=== PATIENT | female | born 1970 | race Hispanic/Latino ===

== ENCOUNTER 2019-10-12 01:33 | Emergency (ER) | payer SELFPAY ==
[2019-10-12 02:25] LABS: Basophils % 0.4 % (0-1.3); Lymphocytes % 15.4 % (15.3-44.8); MPV 8.6 fL (7.6-11.3); RBC Red Blood Cell Count 4.08 M/uL (3.86-4.86)
[2019-10-12] MEDS ORDERED: NA CHLORIDE 0.9% 1,000 ML ONE ×2 (02:39→02:40)
[2019-10-12 02:41] LABS: Urine Blood 3+ (NEG); Urine Glucose NEGATIVE (NEG); Urine Protein 3+ (NEG); Urine Specific Gravity >1.030 (1.005-1.030)
[2019-10-12 02:42] LABS: BUN Blood Urea Nitrogen 12 mg/dL (7-18); Bicarbonate 18 mmol/L (21-32); Glucose Level 187 mg/dL (74-106); Sodium Level 138 mmol/L (136-145)
[2019-10-12] MEDS ORDERED: MORPHINE 4 MG/ML SYR ONE (03:28)
[2019-10-12] MEDS ORDERED: ONDANSETRON 4 MG/2 ML VIAL ONE (03:28)
[2019-10-12] MEDS ORDERED: ACETAMINOPHEN 500 MG TAB ONE (04:54)
[2019-10-12] MEDS ORDERED: PIPER/TAZO/NS 3.375gm 3.375 GM/100 ML BAG ONE (05:30)
[2019-10-12 07:14] LABS: Absolute Lymphocytes (CBC) 0.9 K/uL (0.7-4.9); Basophils % 0.2 % (0-1.3); Hematocrit 26.2 % (36.0-45.0); Lymphocytes % 4.8 % (15.3-44.8); MPV 8.8 fL (7.6-11.3); RBC Red Blood Cell Count 2.96 M/uL (3.86-4.86)
--- NOTE | 2019-10-12 07:19 | EDPHYS ---
Physician Documentation [facility] Name: Eleonora Lipscomb Age: 49 yrs Sex: Female : 1970 Arrival Date: 10/12/2019 Time: 01:37 Bed 5 Private MD: ED Physician Tanvir Herrera HPI: 10/11 02:44 This 49 yrs old Female presents to ER via Wheelchair with complaints of pkl Vaginal Bleeding. 02:44 The patient presents with vaginal bleeding that is moderate, with clots. Onset: The pkl symptoms/episode began/occurred just prior to arrival, 1 hour(s) ago. Associated signs and symptoms: Pertinent positives: cramping. 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 - Social history:: Smoking status: Patient denies any tobacco usage or history of. ROS: 02:44 Positive for vaginal bleeding. pkl 02:44 Eyes: Negative for injury, pain, redness, and discharge, ENT: Negative for injury, pain, and discharge, Neck: Negative for injury, pain, and swelling, Cardiovascular: Negative for chest pain, palpitations, and edema, Respiratory: Negative for shortness of breath, cough, wheezing, and pleuritic chest pain, Abdomen/GI: Negative for abdominal pain, nausea, vomiting, diarrhea, and constipation, Back: Negative for injury and pain. 02:44 : Positive for vaginal bleeding. 02:44 MS/extremity: Negative for acute changes. 02:44 Skin: Negative for rash. 02:44 Neuro: Negative for altered mental status. Exam: 02:44 Head/Face: Normocephalic, atraumatic. Eyes: Pupils equal round and reactive to light, pkl extra-ocular motions intact. Lids and lashes normal. Conjunctiva and sclera are non-icteric and not injected. Cornea within normal limits. Periorbital areas with no swelling, redness, or edema. ENT: Nares patent. No nasal discharge, no septal abnormalities noted. Tympanic membranes are normal and external auditory canals are clear. Oropharynx with no redness, swelling, or masses, exudates, or evidence of obstruction, uvula midline. Mucous membranes moist. Neck: Trachea midline, no thyromegaly or masses palpated, and no cervical lymphadenopathy. Supple, full range of motion without nuchal rigidity, or vertebral point tenderness. No Meningismus. Chest/axilla: Normal chest wall appearance and motion. Nontender with no deformity. No lesions are appreciated. Cardiovascular: Regular rate and rhythm with a normal S1 and S2. No gallops, murmurs, or rubs. Normal PMI, no JVD. No pulse deficits. Respiratory: Lungs have equal breath sounds bilaterally, clear to auscultation and percussion. No rales, rhonchi or wheezes noted. No increased work of breathing, no retractions or nasal flaring. Abdomen/GI: Soft, non-tender, with normal bowel sounds. No distension or tympany. No guarding or rebound. No evidence of tenderness throughout. Back: No spinal tenderness. No costovertebral tenderness. Full range of motion. 02:44 : Pelvic Exam: Speculum exam: moderate bleeding, os that is open. 02:44 Musculoskeletal/extremity: Exam is negative for acute changes. 02:44 Skin: Exam negative for rash. 02:44 Neuro: Orientation: is normal, Mentation: is normal, Cranial nerves: grossly normal, Motor: is normal. Vital Signs: 01:45 BP 164 / 105; Pulse 114; Resp 20; Temp 99(O); Pulse Ox 99% on R/A; Weight 140.61 kg lp1 (R); Height 5 ft. 7 in. (170.18 cm); Pain 0/10; 02:51 BP 177 / 75; Pulse 111; Resp 18; Pulse Ox 95% on R/A; mg2 03:24 BP 168 / 48; Pulse 105; Resp 18; Pulse Ox 95% on R/A; Pain 8/10; mg2 04:40 BP 164 / 78; Pulse 125; Resp 18; Temp 102.3(O); Pulse Ox 94% on R/A; mg2 05:42 BP 138 / 69; Pulse 115; Resp 18; Temp 101.9(O); Pulse Ox 94% on R/A; mg2 06:21 BP 120 / 57; Pulse 123; Resp 18; Pulse Ox 94% on R/A; mg2 06:53 BP 114 / 51; Pulse 123; Resp 18; Temp 100.3; Pulse Ox 96% on R/A; mg2 08:16 BP 122 / 61; Pulse 110; Resp 18; Temp 98.3(O); Pulse Ox 96% on R/A; ph 09:20 BP 108 / 58; Pulse 111; Resp 18; Temp 98.4; Pulse Ox 96% on R/A; ph 01:45 Body Mass Index 48.55 (140.61 kg, 170.18 cm) lp1 MDM: 01:40 Patient medically screened. pkl 04:49 Data reviewed: vital signs, nurses notes. pkl 07:14 Data reviewed: lab test result(s), radiologic studies, plain films, ultrasound. ED pkl course: Talked to Dr. Debbie Vo, transfer to [facility]. 10/11 01:52 Order name: Abo/rh Typing; Complete Time: 03:46 mg2 10/11 01:52 Order name: Basic Metabolic Panel; Complete Time: 03:46 mg2 10/11 01:52 Order name: CBC with Diff; Complete Time: 02:39 mg2 10/11 02:38 Order name: Beta hcg; Complete Time: 03:46 mg2 10/11 02:39 Order name: Urine Dipstick--Ancillary (enter results); Complete Time: 03:46 tt3 10/11 02:39 Order name: Urine --Ancillary (enter results); Complete Time: 03:46 tt3 06 02:42 Order name: US Transvaginal Ob pkl 10/11 04:44 Order name: Blood Culture Adult (2) mg2 10/11 04:44 Order name: Lactate; Complete Time: 06:19 mg2 10/11 04:53 Order name: COVID-19; Complete Time: 20:19 mg2 10/11 06:43 Order name: CBC with Diff; Complete Time: 20:19 pkl 10/11 06:43 Order name: Lactate; Complete Time: 20:19 pkl 10/11 08:22 Order name: Manual Differential; Complete Time: 20:19 EDMS 10/11 01:52 Order name: IV Saline Lock; Complete Time: 02:25 mg2 10/11 01:52 Order name: Labs collected and sent; Complete Time: 02:25 mg2 10/11 01:52 Order name: NPO; Complete Time: 02:25 mg2 10/11 01:52 Order name: Urine Dipstick-Ancillary (obtain specimen); Complete Time: 02:32 mg2 10/11 07:12 Order name: XRAY CXR (1 view); Complete Time: 20:19 pkl 10/11 07:24 Order name: Labs - recollect needed: cbc recollect; Complete Time: 07:53 eb Administered Medications: 02:32 Drug: NS 0.9% 1000 ml Route: IV; Rate: 1000 ml; Site: right antecubital; mg2 06:54 Follow up: Response: No adverse reaction; IV Status: Completed infusion; IV Intake: mg2 1000ml 02:32 Drug: NS 0.9% 1000 ml Route: IV; Rate: 125 ml/hr; Site: right antecubital; mg2 09:20 Follow up: Response: No adverse reaction; IV Status: Infusion continued upon transfer ph 03:35 Drug: morphine 4 mg Route: IVP; Site: right antecubital; mg2 06:54 Follow up: Response: No adverse reaction mg2 03:35 Drug: Zofran (Ondansetron) 4 mg Route: IVP; Site: right antecubital; mg2 06:54 Follow up: Response: No adverse reaction mg2 05:16 Drug: Tylenol 1000 mg Route: PO; mg2 06:54 Follow up: Response: No adverse reaction mg2 05:24 Drug: Zosyn 3.375 grams Route: IVPB; Infused Over: 60 mins; Site: left hand; mg2 06:54 Follow up: Response: No adverse reaction; IV Status: Completed infusion mg2 Disposition: 10/12/19 07:17 Transfer ordered to [facility]. Diagnosis is Vaginal bleeding. Molar . Fever. - Reason for transfer: Higher level of care. - Accepting physician is Dr. Mikael Vo. - Condition is Stable. - Problem is new. - Symptoms are unchanged. Signatures: Dispatcher [employer] EDMS Maranda Nichols, BRENNA NUGENT-Tanvir Gonzales MD MD pkMacie Farias RN RN lp1 Claire Camarena RN RN ph Sharon Kaplan Michele, RN RN mg2 Corrections: (The following items were deleted from the chart) 09:21 07:17 10/12/2019 07:17 Transfer ordered to [facility]. Diagnosis is Vaginal bleeding. ph Molar . Fever. Reason for transfer: Higher level of care. Accepting physician is Dr. Mikael Vo. Condition is Stable. Problem is new. Symptoms are unchanged. pkl
--- NOTE | 2019-10-12 07:19 | ER ---
Nurse's Notes [facility] Name: Eleonora Lipscomb Age: 49 yrs Sex: Female : 1970 Arrival Date: 10/12/2019 Time: 01:37 Bed 5 Private MD: Diagnosis: Vaginal bleeding. Molar . 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 01:45 Coronavirus screen: Proceed with normal triage. Ebola Screen: No symptoms or risks lp1 identified at this time. Initial Sepsis Screen: Does the patient meet any 2 criteria? No. Patient's initial sepsis screen is negative. Does the patient have a suspected source of infection? No. Patient's initial sepsis screen is negative. Risk Assessment: Do you want to hurt yourself or someone else? Patient reports no desire to harm self or others. Onset of symptoms was October 12, 2019 at 01:00. 01:45 Method Of Arrival: Wheelchair lp1 01:45 Acuity: CHRISTINA 3 lp1 Triage Assessment: 02:21 : Reports vaginal bleeding that is with clots, heavy flow. 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 - Social history:: Smoking status: Patient denies any tobacco usage or history of. Screenin:19 Abuse screen: Denies threats or abuse. Denies injuries from another. Nutritional lp1 screening: No deficits noted. Tuberculosis screening: No symptoms or risk factors identified. 02:40 Fall Risk IV access (20 points). mg2 Assessment: 02:19 Reassessment: Assisted patient with transferring to stretcher from , patient soiled, lp1 red in color to pants; Assisted patient with changing into brief. 02:38 General: Appears in no apparent distress. comfortable, Behavior is calm, cooperative. mg2 Pain: Complains of pain in abdomen Pain does not radiate. Pain currently is 5 out of 10 on a pain scale. Quality of pain is described as crampy. Neuro: Level of Consciousness is awake, alert, obeys commands, Oriented to person, place, time, situation. Cardiovascular: Capillary refill < 3 seconds Patient's skin is warm and dry. Respiratory: Airway is patent Respiratory effort is even, unlabored, Respiratory pattern is regular, symmetrical. GI: Abdomen is non-distended. : Urine is clear, siomara blood, bloody. EENT: No signs and/or symptoms were reported regarding the EENT system. Derm: Skin is intact, is healthy with good turgor, Skin is pink, warm \T\ dry. normal. Musculoskeletal: Circulation, motion, and sensation intact. Capillary refill < 3 seconds. 03:57 Reassessment: Patient appears in no apparent distress at this time. change of pads done mg2 twice. severe bleeding noted with Retained product of conception noted. provider checked the tissue and ordered to send to the lab for pathology. 06:55 Reassessment: Patient appears in no apparent distress at this time. change of diaper mg2 done, (fully soaked with blood). 07:53 Reassessment: Patient appears in no apparent distress at this time. Patient and/or ph family updated on plan of care and expected duration. Pain level reassessed. Patient is alert, oriented x 3, equal unlabored respirations, skin warm/dry/pink. Report called to [facility], awaiting EMS for transport, pt's brief changed, large clots noted. 09:17 Reassessment: Patient appears in no apparent distress at this time. Patient and/or ph family updated on plan of care and expected duration. Pain level reassessed. Patient is alert, oriented x 3, equal unlabored respirations, skin warm/dry/pink. Report given to EMS, pt transferred by ambulance to [facility]. Vital Signs: 01:45 BP 164 / 105; Pulse 114; Resp 20; Temp 99(O); Pulse Ox 99% on R/A; Weight 140.61 kg lp1 (R); Height 5 ft. 7 in. (170.18 cm); Pain 0/10; 02:51 BP 177 / 75; Pulse 111; Resp 18; Pulse Ox 95% on R/A; mg2 03:24 BP 168 / 48; Pulse 105; Resp 18; Pulse Ox 95% on R/A; Pain 8/10; mg2 04:40 BP 164 / 78; Pulse 125; Resp 18; Temp 102.3(O); Pulse Ox 94% on R/A; mg2 05:42 BP 138 / 69; Pulse 115; Resp 18; Temp 101.9(O); Pulse Ox 94% on R/A; mg2 06:21 BP 120 / 57; Pulse 123; Resp 18; Pulse Ox 94% on R/A; mg2 06:53 BP 114 / 51; Pulse 123; Resp 18; Temp 100.3; Pulse Ox 96% on R/A; mg2 08:16 BP 122 / 61; Pulse 110; Resp 18; Temp 98.3(O); Pulse Ox 96% on R/A; ph 09:20 BP 108 / 58; Pulse 111; Resp 18; Temp 98.4; Pulse Ox 96% on R/A; ph 01:45 Body Mass Index 48.55 (140.61 kg, 170.18 cm) lp1 ED Course: 01:37 Patient arrived in ED. ag3 01:40 Tanvir Herrera MD is Attending Physician. pkl 01:46 Ken Damon, YG is Primary Nurse. mg2 02:10 Inserted saline lock: 20 gauge in right antecubital area, using aseptic technique. lp1 Blood collected. 02:18 Triage completed. lp1 02:18 Arm band placed on. lp1 02:21 Patient has correct armband on for positive identification. Placed in gown. Bed in low lp1 position. Call light in reach. 02:38 Assist provider with pelvic exam: Set up pelvic tray. Performed by Tanvir Herrera MD Patient mg2 tolerated well. 03:30 Inserted saline lock: 20 gauge in left hand, using aseptic technique. mg2 03:57 Door closed. Warm blanket given. Cleaned of incontinence. Linen changed. mg2 05:00 covid 19 sent to lab. mg2 05:04 US Transvaginal Ob In Process Unspecified. EDMS 06:21 Patient admitted, IV remains in place. mg2 06:41 initiated a transfer with Irene Zaidi from the [facility] transfer Center. eb 07:[address] Barron the OB-GASTROENTEROLOGY MANAGER maintenance person for [facility] with Dr. Herrera for patient eb transfer consultation. 07:[address] Vo the GASTROENTEROLOGY MANAGER maintenance person for [facility] with Dr. Herrera for patient eb transfer consultation. 07:12 administrative approval given by Irene Zaidi/ patient has been accepted to [facility] ER/ Dr. Vo has accepted the patient in transfer/ report to be called to [phone]. 07:26 XRAY CXR (1 view) In Process Unspecified. EDMS 08:01 Repeat lab(s) drawn. by tx, sent to lab. jb1 Administered Medications: 02:32 Drug: NS 0.9% 1000 ml Route: IV; Rate: 1000 ml; Site: right antecubital; mg2 06:54 Follow up: Response: No adverse reaction; IV Status: Completed infusion; IV Intake: mg2 1000ml 02:32 Drug: NS 0.9% 1000 ml Route: IV; Rate: 125 ml/hr; Site: right antecubital; mg2 09:20 Follow up: Response: No adverse reaction; IV Status: Infusion continued upon transfer ph 03:35 Drug: morphine 4 mg Route: IVP; Site: right antecubital; mg2 06:54 Follow up: Response: No adverse reaction mg2 03:35 Drug: Zofran (Ondansetron) 4 mg Route: IVP; Site: right antecubital; mg2 06:54 Follow up: Response: No adverse reaction mg2 05:16 Drug: Tylenol 1000 mg Route: PO; mg2 06:54 Follow up: Response: No adverse reaction mg2 05:24 Drug: Zosyn 3.375 grams Route: IVPB; Infused Over: 60 mins; Site: left hand; mg2 06:54 Follow up: Response: No adverse reaction; IV Status: Completed infusion mg2 Intake: 06:54 IV: 1000ml; Total: 1000ml. mg2 Outcome: 07:17 ER care complete, transfer ordered by MD. garibay 09:19 Transferred by ground EMS [facility]. to [facility], ph Transfer form completed. 09:19 Condition: stable 09:19 Instructed on the need for admit. 09:21 Patient left the ED. ph Addendum: 10/18/2019 11:31 Addendum: Other attempted to contact pt regarding negative COVID-19 swab results. Not a d m5 working number. Signatures: Dispatcher [employer] EDMS Gino Lobato jb1 Jojo Valera, RN RN dm5 Tanvir Herrera MD MD pkl Macie Shi RN RN lp1 Claire Camarena RN RN ph Sharon Kaplan Michele, RN RN mg2 Alexandra Corey ag3 Corrections: (The following items were deleted from the chart) 10/11 05:43 05:42 BP 138 / 69; Pulse 115bpm; Resp 18bpm; Pulse Ox 94% RA; mg2 mg2 09:19 07:53 Reassessment: Patient appears in no apparent distress at this time. Patient ph and/or family updated on plan of care and expected duration. Pain level reassessed. Patient is alert, oriented x 3, equal unlabored respirations, skin warm/dry/pink. Report called to [facility], awaiting EMS for transport ph 09:21 09:20 BP 108 / 58; Pulse 11bpm; Resp 18bpm; Pulse Ox 96% RA; Temp 98.4F; ph ph
[2019-10-12 08:22] LABS: Blood Morphology Comment NOT SEEN (NOT SEEN); Platelet Estimate DECR
--- NOTE | 2019-10-12 08:45 | RAD REPORT ---
EXAM DESCRIPTION: RAD - Chest Single View - 10/12/2019 7:24 am CLINICAL HISTORY: FEVER COMPARISON: May 2017 portable TECHNIQUE: AP portable chest image was obtained 10/12/2019 7:24 am . FINDINGS: Lung volumes are low. No peripheral mass or consolidation seen. Cardiac silhouette is enla rged by shallow inspiration, body habitus and portable technique. Vasculature is prominent but dimini shed compared to the prior study. No focal lung parenchymal process suspected. No pneumothorax or ple ural effusion seen. No acute bony abnormality seen. No acute aortic findings suspected. IMPRESSION: Limited portable study showing no acute lung parenchymal process. Mild cardiomegaly without acute failure or volume overload.
[2019-10-12 09:55] VITALS: O2SAT 96
[2019-10-12 09:57] VITALS: BP 108/58; TEMP 98.4
--- NOTE | 2019-10-12 20:36 | RAD REPORT ---
EXAM DESCRIPTION: US - Transvaginal OB - 10/12/2019 5:03 am ADDENDUM #1 THIS REPORT CONTAINS FINDINGS THAT MAY BE CRITICAL TO PATIENT CARE: The findings were verbally discussed via telephone conference with Dr. Tanvir Herrera by Dr. Alejandra Kim on 10/12/2019 5:38 AM CDT .The results were acknowledged and understood. Electronically signed by: Irene Kim MD 10/12/2019 5:40 AM CDT End of Addendum EXAM DESCRIPTION: US , Transvaginal CLINICAL HISTORY: The patient is 49 years old and is Female; VAGINAL BLEEDING TECHNIQUE: Real-time transvaginal obstetrical ultrasound of the maternal pelvis and a first trimeste r with image documentation. Transvaginal imaging was used for better evaluation of the fe tus and adnexa. COMPARISON: No relevant prior studies available. FINDINGS: LIMITATIONS: Examination is limited secondary to body habitus. GESTATION: There is no evidence of an intrauterine . UTERUS/CERVIX: The uterus is enlarged. Endometrium is thickened and heterogeneous with a somewhat snowstorm appearance consisting of cystic spaces. OVARIES: The ovaries were not seen. FREE FLUID: No free fluid. IMPRESSION: Examination is limited secondary to body habitus. 1. No evidence of intrauterine . 2. Distended endometrium with findings concerning for gestational trophoblastic disease. Correlation with patient's beta hCG and further evaluation/follow-up is recommended. Electronically signed by: Irene Kim MD 10/12/2019 5:17 AM CDT Due to temporary technical issues with the PACS/Fluency reporting system, reports are being signed by the in house radiologist without review as a courtesy to ensure prompt reporting. The interpreting r adiologist is fully responsible for the content of the report.
== END 2019-10-12 09:21 | disposition short-term general hospital (02) ==
LOC: ER 01:33
DX: O02.0 Blighted ovum and nonhydatidiform mole (principal); R50.9 Fever, unspecified; I10 Essential (primary) hypertension
CPT/HCPCS: 36415; 71045; 76817; 80048; 81003; 81025; 83605; 84702; 85025; 86900; 86901; 87040; 87205; 88305; 96361; 96365; 96375; 99285; J2405; J2543; J7030; U0002